=== PATIENT | female | born 1985 | race Caucasian/White ===

== ENCOUNTER → 2018-02-26 14:58 | Outpatient (CLI) | payer OTHER, SELFPAY ==
[2018-02-26 16:03] LABS: Internal QC Validated? YES +Cl - CLEAR BKGD; Pregnancy, Urine Negative Negative
== END ==
PROVIDERS: Visit Provider Physician Assistant
DX: L70.0 Acne vulgaris (principal); Z79.899 Other long term (current) drug therapy
CPT/HCPCS: 81025

== ENCOUNTER → 2018-03-21 15:04 | Outpatient (CLI) | payer OTHER, SELFPAY ==
[2018-03-21 18:15] LABS: Internal QC Validated? YES +Cl - CLEAR BKGD; Pregnancy, Urine Negative Negative
== END ==
PROVIDERS: Visit Provider Dermatology
DX: L70.0 Acne vulgaris (principal); Z79.899 Other long term (current) drug therapy; B35.1 Tinea unguium
CPT/HCPCS: 81025

== ENCOUNTER → 2018-05-04 14:31 | Outpatient (CLI) | payer OTHER, SELFPAY ==
[2014-12-14 11:52] VITALS: BMI 22.8
[2018-05-04 15:12] LABS: Internal QC Validated? YES +Cl - CLEAR BKGD; Pregnancy, Urine Negative Negative
== END ==
PROVIDERS: Family Provider Family Medicine; PCP Family Medicine; Referring Provider Physician Assistant; Visit Provider Physician Assistant
DX: L70.0 Acne vulgaris (principal); Z79.899 Other long term (current) drug therapy
CPT/HCPCS: 81025

== ENCOUNTER → 2018-06-18 11:22 | Outpatient (CLI) | payer OTHER, SELFPAY ==
[2014-12-14 11:52] VITALS: BMI 22.8
[2018-06-18 14:15] LABS: Internal QC Validated? YES +Cl - CLEAR BKGD; Pregnancy, Urine Negative Negative
== END ==
PROVIDERS: Family Provider Family Medicine; PCP Family Medicine; Referring Provider Physician Assistant; Visit Provider Physician Assistant
DX: L70.0 Acne vulgaris (principal); Z79.899 Other long term (current) drug therapy
CPT/HCPCS: 81025

== ENCOUNTER → 2018-06-20 10:54 | Outpatient (CLI) | payer OTHER, SELFPAY ==
[2014-12-14 11:52] VITALS: BMI 22.8
[2018-06-20 12:33] LABS: Internal QC Validated? YES +Cl - CLEAR BKGD; Pregnancy, Urine Negative Negative
[2018-06-20 12:52] LABS: ALB/GLOB Ratio 1.2 RATIO (0.9-2.4); AST(SGOT) 14 U/L (15-37); Alanine Aminotransfer ALT/SGPT 21 U/L (13-56); Alkaline Phosphatase 43 U/L (45-117); Anion Gap 7 (5-15); BUN 11 mg/dL (7-18); BUN/Creat Ratio 17.4 RATIO (10-20); Calcium,Total 8.9 mg/dL (8.5-10.1); Chloride 106 mmol/L (98-107); Cholesterol 169 mg/dL (200); Creatinine, Serum 0.63 mg/dL (0.55-1.02); EST Glomerular Filtration Rate 113 mL/min (>60); Est Glom Filt Rate - Afr Amer 137 mL/min (>60); Globulin 3.2 g/dL (2.2-4.2); Glucose 88 mg/dL (74-106); High Density Lipoprotein 67 mg/dL; Potassium 4.1 mmol/L (3.5-5.1); Protein, Total 7.2 g/dL (6.4-8.2); Sodium Level 140 mmol/L (136-145); Triglycerides 78 mg/dL; Very Low Density Lipoprotein 16 mg/dL (5-40)
[2018-06-20 12:54] LABS: Absolute Lymphocyte Count 1.79 X10^3/ul (0.83-4.51); Absolute Neutrophil Count 3.1 X10^3/uL (2.0-7.7); Basophil# 0.04 X10^3/uL; Basophil% 0.7 % (0-1); Eosinophil# 0.09 X10^3/uL; Eosinophils% 1.6 % (0-5); Hematocrit 42.7 % (37-47); Hemoglobin 13.7 g/dl (12.0-15.0); Lymphocyte # 1.79 X10^3/ul (4.0); Lymphocyte % 32.7 % (19-41); Mean Corp Hgb Conc 32.1 g/gl (32-36); Mean Corpuscular Hgb 28.4 pg (27.0-32.0); Mean Corpuscular Volume 88.6 fL (81-99); Mean Platelet Vol. 9.9 fl (6.2-12.0); Monocyte% 9.1 % (0-10); Neutrophil # 3.05 X10^3/uL (2.7-7.7); Neutrophil % 55.9 % (47-70); Platelet Count 316 K/mm3 (150-450); RBC Distribution Width CV 13.3 % (11.6-14.6); Red Blood Count 4.82 M/mm3 (4.2-5.4); White Blood Count 5.5 K/mm3 (4.4-11.0)
[2018-06-20 12:55] LABS: POSITIVE COUNT NO; POSITIVE DIFFERENTIAL NO; POSITIVE MORPHOLOGY NO
== END ==
PROVIDERS: Family Provider Family Medicine; PCP Family Medicine; Referring Provider Physician Assistant; Visit Provider Physician Assistant
DX: L70.0 Acne vulgaris (principal); Z79.899 Other long term (current) drug therapy
CPT/HCPCS: 36415; 80053; 80061; 81025; 85025

== ENCOUNTER → 2018-07-23 10:38 | Outpatient (CLI) | payer OTHER, SELFPAY ==
[2014-12-14 11:52] VITALS: BMI 22.8
[2018-07-23 12:17] LABS: Internal QC Validated? YES +Cl - CLEAR BKGD
[2018-07-23 12:21] LABS: Pregnancy, Urine Negative Negative
== END ==
PROVIDERS: Family Provider Family Medicine; PCP Family Medicine; Referring Provider Physician Assistant; Visit Provider Physician Assistant
DX: L70.0 Acne vulgaris (principal); Z79.899 Other long term (current) drug therapy
CPT/HCPCS: 81025

== ENCOUNTER → 2018-08-20 08:09 | Outpatient (CLI) | payer OTHER, SELFPAY ==
[2014-12-14 11:52] VITALS: BMI 22.8
[2018-08-20 10:11] LABS: Internal QC Validated? YES +Cl - CLEAR BKGD; Pregnancy, Urine Negative Negative
== END ==
PROVIDERS: Family Provider Family Medicine; PCP Family Medicine; Referring Provider Physician Assistant; Visit Provider Physician Assistant
DX: L70.0 Acne vulgaris (principal); Z79.899 Other long term (current) drug therapy
CPT/HCPCS: 81025

== ENCOUNTER 2023-04-21 17:57 | Emergency (ER) | payer BC, SELFPAY ==
[2023-04-21 17:59] VITALS: BP 123/86; PULSE 70; RESP 16; TEMP 36.1; O2SAT 100; BMI 26.4
--- NOTE | 2023-04-21 18:18 | CT_ITS ---
STUDY: CT BRAIN WITHOUT CONTRAST REASON FOR EXAM: Female, 38 years old. vertigo RADIATION DOSAGE (If Supplied By Facility): CTDIvol = ( 44.99 ) mGy, DLP = ( 762.36 ) mGycm TECHNIQUE: Transaxial CT imaging of the brain was performed without administration of intravenous contrast material. Individualized dose optimization techniques were used for this CT. COMPARISON: No relevant priors. FINDINGS: Normal soft tissue structures. Normal calvarium. Normal size ventricles and extra-axial spaces for the patient''s age. Normal white matter tracts of the cerebral hemispheres. Normal basal ganglia and thalami. Normal brainstem. Normal cerebellum. There is no intracranial hemorrhage. There are no findings of an acute ischemic infarction. Normal visualized paranasal sinuses. CT/Brain/Head without Contrast IMPRESSION: Normal unenhanced CT scan of the brain. Electronically Signed: Angel Charles MD at 19:07 EDT ,
--- NOTE | 2023-04-21 18:20 | EX.ED.DYSGE1 ---
HPI History of Present Illness Chief Complaint: Dizziness Informant: patient Narrative Narrative: Presenting with dizziness starting yesterday with spinning sensations. Symptoms cause nausea and vomiting. Continued symptoms worsened this morning. Unable keep things down. Denies head injuries. States were earplugs 2 days ago at work prior to symptoms occurring. Reports headache since vomiting. Denies any previous similar symptoms in the past. Denies any past medical history. Denies any allergies. Denies any surgical history. Prior similar symptoms: No PFSH PFSH Medical History no medical history Home Medications etodolac 300 mg capsule 300 mg PO TIDCM ##30 12/14/14 [Rx Last Taken Unknown] metoclopramide HCl 10 mg tablet (Reglan) 10 mg PO Q6H PRN vertigo #20 tabs 04/21/23 [Rx Last Taken Unknown] ondansetron 4 mg disintegrating tablet 4 mg PO Q8H PRN PRN nausea and vomiting #10 tabs 04/21/23 [Rx Last Taken Unknown] Allergy/AdvReac Type Severity Reaction Status Date / Time No Known Allergies Allergy Verified 04/21/23 17:58 Surgical History no surgical history Social History Smoking Status: Former smoker ROS ROS ED Constitutional Constitutional ED: Denies chills, fever(s) or sweats Eyes Eyes: Denies change in vision ENT ENT ED: Denies dysphagia or sore throat Cardiovascular Cardiovascular: Denies chest pain, leg edema, palpitations or racing heartbeat Respiratory/Chest Respiratory/Chest: Denies cough, dyspnea or dyspnea on exertion Gastrointestinal Gastrointestinal: Reports nausea and vomiting; Denies abdominal pain or diarrhea Genitourinary Genitourinary ED: Denies dysuria, hematuria or urinary frequency Musculoskeletal Musculoskeletal: Denies back pain, extremity pain or neck pain Integumentary Denies rash or wounds Neurologic Neurologic: Reports headache(s) and other Details: Dizziness ; Denies paresthesias or weakness EXAM Physical Exam Const Vital Signs: 04/21/23 17:59 04/21/23 18:37 04/21/23 18:39 Temperature 97 F L 97 F L Temperature Source Temporal Temporal Pulse Rate 70 70 Respiratory Rate 16 16 Respiratory Pattern Normal Blood Pressure 123/86 H 123/86 H Blood Pressure Mean 98 98 Pulse Ox 100 100 Oxygen Delivery Method Room Air Room Air 04/21/23 20:00 Temperature Temperature Source Pulse Rate Respiratory Rate 16 Respiratory Pattern Blood Pressure Blood Pressure Mean Pulse Ox Oxygen Delivery Method Positive well nourished and well developed General Appearance ED: well developed and NAD HEENT Reports moist mucous membranes normocephalic and atraumatic Eyes PERRL, EOMs intact bilaterally and conjunctivae normal Eyes Narrative: No nystagmus General Eye ED: Yes normal appearance of both eyes Neck no lymphadenopathy and supple General: Negative for tenderness Chest Wall Chest: Negative for tenderness Resp normal respiratory effort and normal air movement Effort and Inspection: symmetric chest movement; Negative for respiratory distress Cardio regular rate, regular rhythm and no murmurs Peripheral Pulses: pulses 2+ throughout GI normal to inspection, nondistended, normoactive bowel sounds and non-tender Palpation: Negative for guarding or rebound tenderness present Back/Spine no CVA tenderness and no thoracic nor lumbar tenderness Extremity normal to inspection General Extremety ED: Negative for edema or tenderness General Extremity: Negative for edema Neuro oriented x3, CN's II-XII intact bilaterally and no sensory deficits noted Neuro Narrative: No focal deficits, Anisha-Hallpike was negative bilaterally. Sensorium / Orientation: awake and alert Skin no rashes or lesions noted and no wounds MDM MDM MDM Narrative Medical decision making narrative: Interventions / MDM: Differential diagnosis: Vertigo Diagnosis considered but do not suspect: Intracranial mass however CT negative My EKG interpretation: N/A Imaging independently reviewed and interpreted by myself: CT brain without contrast: No acute process. External documents reviewed: N/A Test considered but not ordered:N/A ED course: Patient presenting with vertiginous symptoms causing nausea and vomiting. No focal deficit on exam. Symptomatic since yesterday, CT scan ordered Labs were drawn IV fluids and Reglan ordered. CT brain negative Labs stable. Reevaluation clinically improved. P.o. challenge without difficulties. She was ambulated the hallway without difficulties. Discussed continued symptom control monitoring symptoms follow with her PCP. Return precautions. Discussed potential further imaging studies as an outpatient if symptoms persist or reoccurs. All questions were answered. Re-evaluation: stable Disposition discussed with patient/family/significant other: Patient and significant other Case discussed with consulting clinician: N/A This note was generated with [employer] dictation software. It may contain incorrect words, spelling, and punctuation that were not noted in checking the note before signing. Lab Data Attestation: I reviewed the patient's lab results. Labs: Laboratory Results - last 24 hr 04/21/23 18:30 WBC 8.9 RBC 4.59 Hgb 13.5 Hct 41.5 MCV 90.4 MCH 29.4 MCHC 32.5 RDW Std Deviation 39.5 RDW Coeff of Jose 12.0 Plt Count 363 MPV 9.9 Immature Gran % (Auto) 0.200 Neut % (Auto) 73.3 H Lymph % (Auto) 19.7 Dougherty % (Auto) 5.4 Eos % (Auto) 0.8 Baso % (Auto) 0.6 Absolute Neuts (auto) 6.5 Absolute Lymphs (auto) 1.75 Nucleated RBC % 0 Sodium 140 Potassium 3.3 L Chloride 107 Carbon Dioxide 27.0 Anion Gap 6 BUN 8 Creatinine 0.63 Estim Creat Clear Calc 93.88 Est GFR (MDRD) Af Amer 134 Est GFR (MDRD) Non-Af 111 BUN/Creatinine Ratio 12.7 Glucose 102 Calcium 8.7 Serum , Qual NEGATIVE Radiography Diagnostic Testing: Clinical Impression(s) from Imaging Studies Brain CT 04/21/23 18:18 IMPRESSION: Normal unenhanced CT scan of the brain. Electronically Signed: Angel Charles MD at 19:07 EDT , Discharge Plan Triage Chief Complaint: Dizziness ED Provider: Fortino Batista Dx/Rx/DC Orders Clinical Impression: Vertigo, Nausea and vomiting Instructions: ED Vertigo, Unspecified, ED Vomiting (Adult) Prescriptions: New ondansetron [ondansetron] 4 mg tablet,disintegrating 4 mg PO Q8H PRN PRN (Reason: nausea and vomiting) Qty: 10 0RF metoclopramide HCl [Reglan] 10 mg tablet 10 mg PO Q6H PRN (Reason: vertigo) Qty: 20 0RF No Action etodolac 300 MG capsule 300 mg PO TIDCM Qty: 30 0RF Rx Instructions: with food Primary Care Provider: Hayder Paredes Referrals: Hayder Paredes MD [Primary Care Provider] - 1 Week Activity Restrictions/Additional Instructions: CT brain negative. Labs were normal. Use medications as needed. Follow-up with your doctor. Return if any worsening symptoms for reevaluation. Disposition Disposition: Home, Self Care
[2023-04-21] MEDS: Metoclopramide 10 MG/2 ML Vial 5 MG IV (18:31)
[2023-04-21] MEDS: 0.9% Normal Saline (1000mL) 1,000 ML 1000 ML IV (18:31)
[2023-04-21 18:39] VITALS: BP 123/86; PULSE 70; RESP 16; TEMP 36.1; O2SAT 100
[2023-04-21 18:41] LABS: Absolute Lymphocyte Count 1.75 X10^3/uL (0.83-4.51); Absolute Neutrophil Count 6.5 X10^3/uL (2.0-7.7); Basophil# 0.05 X10^3/uL; Basophil% 0.6 % (0-1); Eosinophil# 0.07 X10^3/uL; Eosinophils% 0.8 % (0-5); Hematocrit 41.5 % (37-47); Hemoglobin 13.5 g/dL (12.0-15.0); Lymphocyte # 1.75 X10^3/ul (0.83-4.51); Lymphocyte % 19.7 % (19-41); Mean Corp Hgb Conc 32.5 g/dL (32-36); Mean Corpuscular Hgb 29.4 pg (27.0-32.0); Mean Corpuscular Volume 90.4 fL (81-99); Mean Platelet Vol. 9.9 fl (6.2-12.0); Monocyte# 0.48 X10^3/uL; Monocyte% 5.4 % (0-10); NRBC Flagged by Analyzer 0 % (0-5); Neutrophil % 73.3 % (47-70); Platelet Count 363 K/mm3 (150-450); RBC Distribution Width SD 39.5 fl (35.1-43.9); Red Blood Count 4.59 M/mm3 (4.2-5.4); White Blood Count 8.9 K/mm3 (4.4-11.0)
[2023-04-21 18:52] LABS: Internal QC Validated? YES +Cl - CLEAR BKGD; Pregnancy, Serum, hCG Quali. NEGATIVE Negative
[2023-04-21 18:56] LABS: Anion Gap 6 (5-15); BUN 8 mg/dL (7-18); BUN/Creat Ratio 12.7 RATIO (10-20); Calcium,Total 8.7 mg/dL (8.5-10.1); Chloride 107 mmol/L (98-107); Creatinine, Serum 0.63 mg/dL (0.55-1.02); EST Glomerular Filtration Rate 111 mL/min (>60); Est Glom Filt Rate - Afr Amer 134 mL/min (>60); Estimated Creatinine Clearance 93.88 ml/min; Glucose 102 mg/dL (74-106); Potassium 3.3 mmol/L (3.5-5.1); Sodium Level 140 mmol/L (136-145)
[2023-04-21 20:00] VITALS: RESP 16
== END 2023-04-21 20:30 | disposition home or self-care (01) ==
PROVIDERS: Emergency Provider Emergency Medicine; PCP Family Medicine; Visit Provider Emergency Medicine
DX: R42 Dizziness and giddiness (principal); R11.2 Nausea with vomiting, unspecified; Z87.891 Personal history of nicotine dependence
CPT/HCPCS: 70450; 80048; 84703; 85025; 96361; 96374; 99283; J7030; A4216

== ENCOUNTER → 2024-05-13 | Outpatient (CLI) | payer OTHER, SELFPAY ==
--- NOTE | 2024-05-13 16:22 | RAD_ITS ---
STUDY: X-RAY - LEFT HAND, ATTENTION THIRD FINGER REASON FOR EXAM: Female, 39 years old. injury TECHNIQUE: 3. view(s) of the finger were obtained. COMPARISON: None. FINDINGS: Normal metacarpal head. Normal metacarpophalangeal joint. Normal proximal phalanx. Normal middle phalanx. Normal distal phalanx. Normal proximal interphalangeal joint. Normal distal interphalangeal joint. There is no demonstrated fracture. RAD/Finger(s) Min 2 Views IMPRESSION: Normal x-ray examination of the finger. Electronically Signed: Artur Herrera MD at 17:26 EST ,
== END | disposition home or self-care (01) ==
LOC: MTRAD 16:17
PROVIDERS: PCP Family Medicine; Referring Provider Physician Assistant; Visit Provider Physician Assistant
DX: S69.92XA Unspecified injury of left wrist, hand and finger(s), initial encounter (principal)
CPT/HCPCS: 73140

== ENCOUNTER 2025-01-02 11:15 | Day surgery (SDC) | payer BC, SELFPAY ==
--- NOTE | 2024-12-25 11:58 | PCM.HP.BLA ---
History and Physical Date of Admission: 01/02/25 Pre-Op History and Physical HPI: The patient is a 39 year old female presenting for discussion regarding surgical mgmt of AUB/EM polyp. pre-operative visit. She is scheduled for Hysteroscopy D&C and polypectomy, for AUB, endometrial Polyp on 01/02/25. Procedure discussed along with risks, benefits and complications. Other alternatives discussed for management. Consent form signed? Yes. PAST MEDICAL HISTORY PAST MEDICAL HISTORY Diagnosis Date ? Abnormal mammogram of right breast 12/28/2022 ? Acne Derm Dr. Pack ? ASCUS with positive high risk HPV cervical ? Depression ? History of anxiety ? Tobacco abuse Resolved PAST SURGICAL HISTORY PAST SURGICAL HISTORY Procedure Laterality Date ? ESSURE 2014 ? INDUCED AMNIOTIC INJX W/D&C/EVACJ X-2 ? INSERTION OF IUD 07/17/2010 Mirena inserted at in [place] ? IUD REMOVAL 2013 ? PAST SURGICAL HISTORY OF 2007 BREAST AUGMENTATION CURRENT MEDICATIONS Current Outpatient Medications Medication Sig Dispense Refill ? lactobacillus comb no.10 (PROBIOTIC) 20 billion cell cap Take by mouth once daily. No current facility-administered medications for this visit. ALLERGIES: Zoloft [Sertraline Hcl] PERSONAL HISTORY: SOCIAL HISTORY Social History Tobacco Use ? Smoking status: Former Current packs/day: 0.00 Average packs/day: 1 pack/day for 14.0 years (14.0 ttl pk-yrs) Types: Cigarettes Start date: 11/23/2001 Quit date: 11/24/2015 Years since quittin.0 ? Smokeless tobacco: Never Vaping Use ? Vaping status: Never Used Substance Use Topics ? Alcohol use: Yes Comment: Occasionally ? Drug use: No FAMILY HISTORY: FAMILY HISTORY FAMILY HISTORY Problem Relation Age of Onset ? Hyperlipidemia Mother ? Lipids Father ? Diabetes Father Type 2 ? No Known Problems Brother ? other (Hypertension) Maternal Grandmother ? Heart Maternal Grandfather ? Heart Paternal Grandmother ? Prostate Cancer Paternal Grandfather ? No Known Problems Daughter ? No Known Problems Daughter ? No Known Problems Daughter REVIEW OF SYMPTOMS: negative except as noted above PHYSICAL EXAMINATION: VITALS: Blood pressure 102/61, pulse 72, resp. rate 14, height 157.5 cm (5' 2), weight 63 kg (138 lb 12.8 oz), last menstrual period 11/08/2024, SpO2 99%. GENERAL: The patient is well nourished, well hydrated in no acute distress. , The patient is oriented to time, place, and person. NECK: full range of motion LUNGS: Clear to auscultation bilaterally. no wheezes, rhonchi or rales HEART: Regular rate and rhythm, Normal heart sounds, and No murmurs or gallops IMPRESSION: 39yo with AUB, endometrial polyp on EMB PLAN: Hysteroscopy, D&C, polypectomy with symphion Pt has been counseled on risks/benefits and alternatives of surgery including but not limited to anesthesia, bleeding, infection, uterine perforation with subsequent injury to pelvic structures including bowel, bladder, ureters and vessels. Pt wishes to proceed with surgery at this time. Pre and post op instructions reviewed I have reviewed and updated past medical and surgical history, medications and allergies Alice Diaz MD Office Visit on 12/25/2024 Note shared with patient
[2024-12-31 17:05] LABS: Hematocrit 39.6 % (37-47); Hemoglobin 13.1 g/dL (12.0-15.0); Mean Corp Hgb Conc 33.1 g/dL (32-36); Mean Corpuscular Volume 86.8 fL (81-99); Mean Platelet Vol. 10.2 fl (6.2-12.0); Platelet Count 389 K/mm3 (150-450); RBC Distribution Width CV 13.0 % (11.6-14.6); RBC Distribution Width SD 41.1 fl (35.1-43.9); Red Blood Count 4.56 M/mm3 (4.2-5.4); White Blood Count 8.3 K/mm3 (4.4-11.0)
[2025-01-02] VITALS (8 sets, daily range): BP systolic 83–106; BP diastolic 49–72; PULSE 61–80; RESP 14–16; TEMP 36.1–36.6; O2SAT 97–100; BMI 25.3
[2025-01-02 11:46] LABS: Internal QC Validated? YES +Cl - CLEAR BKGD; Pregnancy, Urine Negative Negative; Record Kit Lot#,Urine Preg 0000962302
[2025-01-02] MEDS: Lactated Ringers 1,000 ML 15 ML IV (11:46)
--- NOTE | 2025-01-02 12:05 | PRE.ANES_ITS ---
ASA Classification* ASA Classification ASA Classification: 1 Assessment & Plan Anesthesia* Anesthesia Assessment Anesthesia Assessment: Discussed sedation and/or anesthesia options, risks, benefits, and alternatives with patient/parents/legal guardian/POA. Questions invited. The patient/parents/legal guardian/POA seems to understand and agrees to proceed with anesthesia plan. Reviewed the physical assessment, medical history, allergy history and patient home medications list prior to surgery/procedure/anesthetic and documented any changes. Performed airway and anesthesia risk assessments. Anesthesia Type Anesthesia Type: MAC History Source History Obtained from:: Patient and Chart Anesthesia Focused Assessment* Temperature: 97.5 F Pulse Rate: 61 Blood Pressure: 106/57 Respiratory Rate: 16 Pulse Ox: 100 Oxygen Delivery Method: Room Air Airway Assessment Mouth opens: >3 cm Mallampati Score: II Teeth Condition: Intact Neck Range of motion (ROM): Full ROM Labs Anesthesia Preop lab: CBC WBC 8.3 K/mm3 (4.4-11.0) 12/31/24 15:58 12/31/24 RBC 4.56 M/mm3 (4.2-5.4) 12/31/24 15:58 12/31/24 Hgb 13.1 g/dL (12.0-15.0) 12/31/24 15:58 12/31/24 Hct 39.6 % (37-47) 12/31/24 15:58 12/31/24 Plt Count 389 K/mm3 (150-450) 12/31/24 15:58 12/31/24 CHEMISTRY Potassium 3.3 mmol/L (3.5-5.1) L 04/21/23 18:30 04/21/23 Sodium 140 mmol/L (136-145) 04/21/23 18:30 04/21/23 BUN 8 mg/dL (7-18) 04/21/23 18:30 04/21/23 Creatinine 0.63 mg/dL (0.55-1.02) 04/21/23 18:30 04/21/23 Glucose 102 mg/dL (74-106) 04/21/23 18:30 04/21/23 COAG Urine Test Negative Negative 01/02/25 11:20 01/02/25 Pre-Assessment Diagnosis/Proposed Procedure Planned Operative Procedure(s): Hysteroscopy,D&C, polypectomy, Symphion Anesthesia History Anesthesia History - robotics technologist: Anesthesia History - robotics technologist Hx Hospitalization No 12/30/24 11:56 Any Problems With Anesthesia Yes: ponv 12/30/24 11:56 Cholinesterase deficiency No 12/30/24 11:56 You/Your Family Experience No 12/30/24 11:56 fever (hyperthermia) with Relationship Recent Exposure to Contagious Disease Does patient have nerve No 12/30/24 11:56 stimulator Patient instructed to have device shut off --Does patient have Pacemaker No 01/02/25 11:39 or ICD? When Was Last Pacemaker Check QUESTION #4 FULL TEXT: You/Your Family Experience fever (hyperthermia) with Anesthesia Last Oral Intake Last Oral intake: Last Oral Intake NPO since 11:00 01/02/25 11:39 Meds taken in AM with sips of No 01/02/25 11:39 water? Meds patient instructed to take am of surgery PONV PONV - robotics technologist: PONV - robotics technologist Female Yes 12/30/24 11:56 HX of Motion Sickness No 12/30/24 11:56 HX of N/V After Surgery Yes 12/30/24 11:56 Non-Smoker Yes 12/30/24 11:56 Duration of Surgery greater No 12/30/24 11:56 than 60 minutes Number of Risk Factors 3 12/30/24 11:56 PONV Score Moderate Risk 12/30/24 11:56 Height & Weight Height & Weight: Anesthesia: Height & Weight Height 5 ft 2 in 01/02/25 11:39 Weight: 62.868 kg 01/02/25 11:39 Body Mass Index (BMI) 25.3 01/02/25 11:39 Respiratory Assessment Respiratory Assessment - robotics technologist: Respiratory Tract Infection Hx - robotics technologist Hx Respiratory Tract Infection No 12/30/24 11:56 STOP Sleep Apnea STOP Sleep Apnea - robotics technologist: STOP Sleep Apnea - robotics technologist Hx Hypertension No 12/30/24 11:56 Hx Sleep Apnea No 12/30/24 11:56 CPAP BIPAP Do you snore loudly (louder No 12/30/24 11:56 than talking or can be heard Do you often feel tired/ No 12/30/24 11:56 fatigued/ sleepy during daytime? Has anyone observed you stop No 12/30/24 11:56 breathing during sleep? STOP Results Negative 12/30/24 11:56 QUESTION #5 FULL TEXT : Do you snore loudly (louder than talking or can be heard through closed doors)? Tobacco Use History Tobacco Use History - robotics technologist: Tobacco Use History - robotics technologist Tobacco Use Smoking Status Former smoker 12/30/24 11:56 Hx Tobacco Use Yes 12/30/24 11:56 Years Smoking Packs Smoked per Day Smoking Cessation Date was Yes - quit smoking within 15 12/30/24 11:56 within the last 15 years years Hx Smoking Cessation Date Hx Smoking Cessation No 12/30/24 11:56 Counseling Hematologic Medial History Hematologic Hx - robotics technologist: Hematologic Medical Hx - loan documentation specialist Hx of Blood Transfusion No 12/30/24 11:56 Hx of Transfusion in last 3 No 12/30/24 11:56 Months Date of Last Transfusion (if within last 3 months) Ever experience any problems No 12/30/24 11:56 with transfusion(s)? Specify any problems Hx of Preganancy in last 3 No 12/30/24 11:56 Months Nurse Filling Out Transfusion JZOLLINGE 12/30/24 11:56 & Questions: Date: 12/30/24 12/30/24 11:56 Time: 11:58 12/30/24 11:56 Patient unable to answer at this time (ie. confused, unrespo /Reproduction History /Reproductive History - robotics technologist: /Reproductive Hx- robotics technologist Hx Now No 12/30/24 11:56 Gestational Age (in weeks): EDC: Hx Hx Para Hx Section SAB No 12/30/24 11:56 Active Medications Active Medications: Current Medications Generic Name Dose Route Start Last Admin Trade Name Freq PRN Reason Stop Dose Admin Lactated Ringer's 1,000 mls @ 15 mls/hr 01/02/25 11:30 01/02/25 11:46 IV 15 mls/hr .Q48H VLADIMIR Administration PFSH Medical History (Updated 05/13/24 @ 17:22 by Yusuf ORELLANA, PA) Former smoker Contusion of left middle finger Laceration of left middle finger Home Medications ?Medication ?Instructions ?Recorded ?Last Taken ?Type Lactobacillus acidophilus 10 100 mmu cells PO DAILY 01/01/25 History billion cell capsule (NewFlora) Allergy/AdvReac Type Severity Reaction Status Date / Time sertraline (From Zoloft) AdvReac Intermediate Nausea Verified 01/02/25 11:34 Surgical History (Updated 12/30/24 @ 12:01 by Kemi Valles) Hx of breast augmentation Social History Smoking Status: Former smoker Review of Systems (Anesthesia) ROS Narrative System reviewed and no additional complaints, except as documented.
--- NOTE | 2025-01-02 12:25 | PCM.DC ---
Discharge Instructions DC O2, CPAP, BIPAP needs Home O2 Discharge instructions: No Dressing / Incision May resume sexual activity in: 1 week Dressing / Incision Call your doctor if you observe: Fever of 101 or Higher, Inability to urinate, Using more than 1 pad per hour and Uncontrolled pain Follow Up Care Please Follow Up With: Alice Palmer MD When: I will call you with pathology results in 1-2 weeks, if you feel you need an appointment please call [phone] Test Results: Test results from this visit will be discussed in further detail at your follow-up appointment, if applicable. Discharge Plan Admission Attending Provider: Alice Palmer Primary Care Provider: Hayder Paredes Instructions Print Language: [place]ese Discharge Orders/Prescriptions Prescriptions: No Action NewFlora 10 billion cell capsule 100 mmu cells PO DAILY Referrals / Follow Up: Hayder Paredes MD [Primary Care Provider] - Disposition Disposition (needs filled in before D/C Order can be placed): Home, Self Care
--- NOTE | 2025-01-02 12:45 | EMB_PTH ---
PATIENT: GAMA ALVARADO LOC: [facility] [place] U#:[id number] AGE/SX: 39/F ROOM: RE01/02/[address]: Dr. Alice Palmer, MDDOB: 1985 BED: DIS: 01/02/2025 SPEC #: [id number] RECD: 01/02/25 13:49 STATUS: ANTHONY TAMMI #: [id number] TUCKER: 01/02/25 12:[address]: Alice Palmer DEPT: SURGICAL PATHOLOGY RECD BY: Yi Morton ENTERED: 01/02/25 14:20 SP TYPE: ENDOM BX/C LUIS DR: Dr. Hayder Paredes MD Tissues: Endometrium, NOS Procedures: Surgery Specimen Level IV HEADER OPERATION: Hysteroscopy, D&C, polypectomy, PRE-OP DIAGNOSIS: AUB, endometrial polyp on EMB TISSUE SUBMITTED: Endometrial curettings and polyp MICROSCOPIC DIAGNOSIS A. Endometrium, AUB, polyp, hysteroscopy polypectomy, dilation and curettage: - Fragments of proliferative endometrium and superficial myometrium. MICROSCOPIC DESCRIPTION Slides are reviewed. GROSS DESCRIPTION A. Received in formalin labeled with the patient's name and date of . Designated as endometrial curettings and polyp is a 3.3 x 1.4 x 0.4 cm aggregate of dave-pink to red tissue fragments. Entirely submitted in 1 cassette. AK 01/02/2025 CPT: 79119
--- NOTE | 2025-01-02 12:52 | OP.PCM_ITS ---
Operative Report (Standard) Operative Information Date of Procedure: 01/02/25 Pre-Operative Diagnosis: aub, endometrial polyp Post-Operative Diagnosis: same Surgery/Procedure Performed: hysteroscopy, D&C, polypectomy with symphion compliance professional: No Type of Anesthesia: MAC RN Documented Start/Stop Times: Operation Date: 01/02/25 12:45 Case Time Into Pre-Op 01/02/25 11:20 Procedure Start Time: 12:45 Procedure Stop Time: 12:51 Select all DRAINS/GRAFTS/IMPLANTS that apply: None Estimated Blood Loss: <5cc Fluids Replaced: 700 Specimen collected: Yes Description of specimen(s) removed: endometrial curettings and endometrial polyp Description of surgery: Informed consent was obtained the patient was taken the operating room she was placed in supine position. She was given anesthesia. She was then placed in the [facility] where she was prepped and draped in the normal sterile fashion. At this time the weighted speculum was placed in the posterior fornix of vagina. Single-tooth tenaculum was used to gently grasp the anterior lip the cervix. At this time the uterine cavity was sounded to approximately 9 cm. Gentle dilatation was performed once adequate dilatation of the cervix was achieved the hysteroscope using normal saline as a distention medium was placed. small polyp noted on posterior aspect of endometrium. Tubal ostia visualized. Symphion resecting device used to obtain endometrial curettings and to perform polypectomy. Tissue will be sent to pathology for evaluation. Tenaculum removed. Good hemostasis. Instrument, lap count correct x 2. Vaginal Sweep was negative. Surgical Findings: small polyp on posterior aspect. both tubal ostia visualized. Complications Complications: No Admit VTE Documentation VTE Present on Admission: Yes VTE Mechan Device Prophylaxis: SCD's VTE Pharm Prophylaxis ordered?: No Reason prophylaxis not ordered: Treatment Not Indicated
--- NOTE | 2025-01-02 12:53 | PCM.POST.ANE ---
Anesthesia: Postop Eval I Current Vital Signs Temperature: 98 F Pulse Rate: 65 Blood Pressure: 96/57 Respiratory Rate: 14 Pulse Ox: 100 Oxygen Delivery Method: Room Air Assessment Airway patent: Yes Spontaneous unlabored respirations: Yes Mental status: Awake and Calm nausea: No Vomiting: No Anesthesia Complication: No Fluid Hydration Crystalloid volume administer (ml): 700 Total IV fluid infused: 700 Progress Note Anesthesia document: Postop Eval 1 completed: Yes
--- NOTE | 2025-01-02 12:55 | POSTOPAN2_ITS ---
Anesthesia Postop Eval I Sum Postop Eval Completion status Anesthesia document: Postop Eval 1 completed: Yes Anesthesia Postop Eval I Summary Anesthesia Postop Eval I Summary: Anesthesia Postop Eval I: Assessment Summary Airway patent Yes 01/02/25 12:54 AOC PLANS INTELLIGENCE OFFICER CHIEF.MDOT Spontaneous unlabored Yes 01/02/25 12:54 AOC PLANS INTELLIGENCE OFFICER CHIEF.MDOT respirations Mental status Awake,Calm 01/02/25 12:54 AOC PLANS INTELLIGENCE OFFICER CHIEF.MDOT nausea No 01/02/25 12:54 AOC PLANS INTELLIGENCE OFFICER CHIEF.MDOT Vomiting No 01/02/25 12:54 AOC PLANS INTELLIGENCE OFFICER CHIEF.MDOT Anesthesia Postop Eval I: Fluid Summary Crystalloid volume administer 700 01/02/25 12:54 AOC PLANS INTELLIGENCE OFFICER CHIEF.MDOT (ml) Colloids volume administered ( ml) Blood Product volume administered (ml) Total IV fluid infused 700 01/02/25 12:54 AOC PLANS INTELLIGENCE OFFICER CHIEF.MDOT Anesthesia Postop Eval I: Summary Notes Anesthesia Complication No 01/02/25 12:54 AOC PLANS INTELLIGENCE OFFICER CHIEF.MDOT Anesthesia Complication Comment: Post-operative progress note Anesthesia: Postop Eval II Evaluation Mental status: Awake and Calm Pain Level: 0 nausea: No Vomiting: No Complications Anesthesia Complication: No
--- NOTE | 2025-01-02 12:55 | PCM.POSTANE2 ---
Anesthesia Postop Eval I Sum Postop Eval Completion status Anesthesia document: Postop Eval 1 completed: Yes Anesthesia Postop Eval I Summary Anesthesia Postop Eval I Summary: Anesthesia Postop Eval I: Assessment Summary Airway patent Yes 01/02/25 12:54 [email or web address] Spontaneous unlabored Yes 01/02/25 12:54 [employer].MDOT respirations Mental status Awake,Calm 01/02/25 12:54 [employer]MDOT nausea No 01/02/25 12:54 [employer].MDOT Vomiting No 01/02/25 12:54 [employer].MDOT Anesthesia Postop Eval I: Fluid Summary Crystalloid volume administer 700 01/02/25 12:54 [employer].MDOT (ml) Colloids volume administered ( ml) Blood Product volume administered (ml) Total IV fluid infused 700 01/02/25 12:54 [employer].MDOT Anesthesia Postop Eval I: Summary Notes Anesthesia Complication No 01/02/25 12:54 [employer].MDOT Anesthesia Complication Comment: Post-operative progress note Anesthesia: Postop Eval II Evaluation Mental status: Awake and Calm Pain Level: 0 nausea: No Vomiting: No Complications Anesthesia Complication: No
== END 2025-01-02 13:26 | disposition home or self-care (01) ==
LOC: SDC 11:17 → AC 11:19
PROVIDERS: PCP Family Medicine; Referring Provider Obstetrics & Gynecology; Visit Provider Obstetrics & Gynecology
PROC: 0UB98ZZ Excision of Uterus, Via Natural or Artificial Opening Endoscopic (ICD-10-PCS; CPT 58558; principal; 2025-01-02 12:30)
DX: N93.9 Abnormal uterine and vaginal bleeding, unspecified (principal); N84.0 Polyp of corpus uteri; Z87.891 Personal history of nicotine dependence
CPT/HCPCS: 58558; 36415; 81025; 85027; 88305; J2405